=== PATIENT | female | born 1995 | race American Indian/Alaskan Native ===

== ENCOUNTER 2019-02-23 16:18 | Inpatient (IN) | payer MEDICAID ==
[2019-02-23] MEDS ORDERED: BRETHINE SUB-Q PRN (17:43)
[2019-02-23] MEDS ORDERED: BRETHINE IVP PRN (17:43)
[2019-02-23] MEDS ORDERED: MINERAL OIL PO PRN (17:43)
[2019-02-23] MEDS ORDERED: ZOFRAN IV PRN (17:53)
[2019-02-23] MEDS ORDERED: SUBLIMAZE IV PRN (17:53)
[2019-02-23] MEDS ORDERED: XYLOCAINE 2% INFILTRATI ONE ×2 (17:53→18:00)
--- NOTE | 2019-02-23 17:57 | History and Physical Report ---
History of Present Illness Date of examination: 02/23/19 (pt presented to Triage in active labor) History of present illness: EDC Confirmation: 03/06/2019 Gestational Age: 38 2/7 weeks Past History : 3 Term Births: 1 Premature Births: 0 Living Children: 1 Para: 1 Mult. Births: 0 Prev : 0 Aborta: 1 Elect. Ab: 0 Spont. Ab: 1 Ectopics: 0 # 1 Delivery date: 2011 Weeks Gestation: 6 Delivery type: SAB Comments: No D&C # 2 Delivery date: 09/25/2015 Weeks Gestation: 38 labor: no Delivery type: Hours of labor: 12 Anesthesia type: epidural Delivery location: [place], [place] Infant Sex: Female weight: 6-4 Name: Alexa Past Medical History: Bronchitis Past Surgical History: Negative Past Surgical History Family History Summary: Other family member - Has No Family History of Ovarvian Cancer - Entered On: 02/22/2019 Other family member - Has No Family History of Colon Cancer - Entered On: 02/22/2019 Other family member - Has Family History of Hypertension - Entered On: 02/22/2019 Other family member - Has Family History of Diabetes - Entered On: 02/22/2019 Other family member - Has Family History of Coronary Heart Disease - Entered On: 02/22/2019 Other family member - Has Family History Breast Cancer - Entered On: 02/22/2019 Social History: Marital Status: Single Children: 1 Occupation: Risk Factors: Smoked Tobacco Use: Current every day smoker Cigars: Yes -- 5 per week Counseled to quit/cut down: yes Drug use: no HIV high-risk behavior: low risk Alcohol use: no Dietary Counseling: pn yes PAP Smear History: Date of Last PAP Smear: 10/03/2017 Results: normal Past Medical History Surgery (Non-director of housing and energy services): Negative Past Surgical History Abnormal PAP: negative Uterine Anomaly: negative Social Hx: Marital Status: Single Children: 1 Occupation: Infection History Hx of STD: chlamydia HIV Risk Eval: low risk Hepatitis B Risk Eval: low risk Partner hx. of genital herpes: no Genetic History Congenital Heart Defect: Mom: no Dad: no Joselito Disease: Mom: no Dad: no Thalassemia Mom: no Dad: no Neural Tube Defect Mom: no Dad: no Down's Syndrome Mom: no Dad: yes Comments: brother Humble-Sachs Mom: no Dad: no Sickle Cell Disease/Trait Mom: no Dad: no Hemophilia Mom: no Dad: no Muscular Dystrophy Mom: no Dad: no Cystic Fibrosis Mom: no Dad: no Amaury Chorea Mom: no Dad: no Mental Retardation Mom: no Dad: no Fragile X Mom: no Dad: no Other Genetic/Chromosomal Disorder Mom: no Dad: no Child w/other defect Mom: no Dad: no Enviromental Exposures Xray Exposure: no Medication, drug, or alcohol use since LMP: no Chemical/Other Exposure: no Exposure to Cat Liter: no Active Medications (reviewed today): None Current Allergies (reviewed today): * PNC (Critical) * AMOXICILLIN (Critical) Past History - Obstetrical History Expected Date of Delivery: 03/06/19 Actual Gestation: 38 Week(s) 3 Day(s) : 3 Para: 1 Hx # Term Pregnancies: 1 Number of Pregnancies: 0 Spontaneous Abortions: 1 Induced : 0 Number of Living Children: 1 Medications and Allergies Allergies Allergy/AdvReac Type Severity Reaction Status Date / Time amoxicillin Allergy Itching Verified 02/23/19 17:43 Active Meds: Active Medications Ephedrine Sulfate (Ephedrine Sulfate) 10 mg IV Q2M PRN PRN Reason: Hypotension Oxytocin/Sodium Chloride (Pitocin/Ns 20 Unit/1000ml Drip) 20 units in 1,000 mls @ 125 mls/hr IV DIRECT AVERY Oxytocin/Sodium Chloride (Pitocin/Ns 30 Unit/500ml) 30 units in 500 mls @ 1 mls/hr IV TITR AVEYR; Protocol Lactated Ringer's (Lactated Ringers) 1,000 mls @ 125 mls/hr IV DIRECT AVERY Lidocaine (Xylocaine 2%) 20 ml INFILTRATI ONCE ONE Stop: 02/23/19 18:01 Mineral Oil (Mineral Oil) 30 ml PO QHS PRN PRN Reason: Constipation Terbutaline Sulfate (Brethine) 0.25 mg SUB-Q ONCE PRN PRN Reason: Hyperstimulation/Hypertonicity Terbutaline Sulfate (Brethine) 0.25 mg IVP ONCE PRN PRN Reason: Hyperstimulation/Hypertonicity - Vital Signs Vital signs: Vital Signs Pulse BP 100 H 121/71 02/23/19 16:35 02/23/19 16:35 Temp Pulse Resp BP Pulse Ox 98.1 F 100 H 16 121/71 02/23/19 17:42 02/23/19 16:35 02/23/19 17:42 02/23/19 16:35 - Physical Exam Breasts: Positive: deferred Cardiovascular: Regular rate, Normal S1, Normal S2 Lungs: Positive: Normal air movement Abdomen: Positive: normal appearance, soft, normal bowel sounds. Negative: distention, tenderness Genitourinary (Female): Positive: normal perenium Vulva: both: normal Vagina: Positive: normal moisture. Negative: discharge Cervix: Negative: lesion, discharge Uterus: Positive: normal size, normal contour Adnexa: both: normal Anus/Rectum: Positive: normal perianal skin, heme negative. Negative: rectal mass, hemorrhoids Extremities: Positive: normal Deep Tendon Reflex Grade: Normal +2 - Obstetrical FHR: category 1 Uterine Contraction Monitor Mode: External Cervical Dilatation: 7 (chg from arrival 5cm by Triage nurse) Cervical Effacement Percentage: 100 station: -1 Uterine Contraction Pattern: Regular Uterine Tone Measurement Phase: Resting Uterine Contraction Intensity: Moderate Results All other labs normal. Current OB Labs Blood Type: O (07/06/2018) Rh Type: positive (07/06/2018) Rh Antibody Screen: negative (07/06/2018) Hgb: 13.6 (07/06/2018) Hct: 41.3 (07/06/2018) Platelets: 234 (07/06/2018) Rubella: immune (07/06/2018) RPR: nonreactive (07/06/2018) Hep B Surface Antigen: negative (07/06/2018) HIV: negative (07/06/2018) Pap Smear: normal (10/03/2017) Quad Screen Interpretation: Negative (09/26/2018) 1 Hour GTT: 79 (12/07/2018) Optional Labs Sickle Cell: negative (07/06/2018) Assessment and Plan 23yo @ 38 weeks active labor GBS unknown Saw pt for the first time in our office 02/22/19. All orders in EMR anticipate delivery
[2019-02-23] MEDS ORDERED: PITOCin/NS 20 UNIT/1000ML DRIP 20 UNITS/1,000 ML BAG IV SCH (18:00)
[2019-02-23] MEDS ORDERED: LACTATED RINGERS 1,000 ML IV SCH ×2 (18:00)
[2019-02-23] MEDS ORDERED: PITOCin/NS 30 UNIT/500ML 30 UNITS/500 ML BAG IV SCH (18:00)
[2019-02-23] MEDS ORDERED: CLEOCIN 900 MG/50 mL 900 MG/50 ML BAG IV SCH (18:00)
[2019-02-23 18:16] LABS: Hematocrit 36.9 % (30.3-42.9); Hemoglobin 12.8 gm/dl (10.1-14.3); Mean Corpuscular HGB Conc 35 % (30-34); Mean Corpuscular Volume 92 fl (79-97); Platelet Count 183 K/mm3 (140-440); Red Blood Count 4.03 M/mm3 (3.65-5.03); Red Cell Distribution Width 14.7 % (13.2-15.2)
[2019-02-23] MEDS ORDERED: STADOL IV PRN (18:55)
[2019-02-23] MEDS ORDERED: STADOL ONE (18:58)
[2019-02-23] MEDS ORDERED: TUCKS PAD TP PRN (18:59)
[2019-02-23] MEDS ORDERED: MILK OF MAGNESIA PO PRN (18:59)
[2019-02-23] MEDS ORDERED: PHENERGAN PO PRN (18:59)
[2019-02-23] MEDS ORDERED: BENADRYL PO PRN (18:59)
[2019-02-23] MEDS ORDERED: LANSINOH TP PRN (18:59)
[2019-02-23] MEDS ORDERED: DULCOLAX PR PRN (18:59)
[2019-02-23] MEDS ORDERED: SODIUM CHLORIDE FLUSH SYRINGE 10 ML IV NR (19:00)
--- NOTE | 2019-02-23 19:08 | Procedure Note ---
OB Delivery Note - Delivery Date of Delivery: 02/23/19 Scrum Master: ANDREW HAMLIN Estimated blood loss: 300cc - Vaginal Delivery presentation: vertex Delivery position: OA Intrapartum events: none Delivery induction: none Delivery augmentation: rupture of membranes Delivery monitor: external FHT, external uterine Route of delivery: Delivery placenta: spontaneous Delivery cord: nuchal cord, 3 umbilical vessels Episiotomy: none Delivery laceration: none Anesthesia: none Delivery comments: live born male over intact perineum CAN x1 delivered through Cord blood obtained Placenta and membrane del complete and intact, 3 vessel cord. Pit IVFs 8/9, EBL 300, wgt 6-15. Mom and baby remain LDR stable - A at 1 minute: 8 at 5 minutes: 9 Gender: Male (wgt 6-15)
[2019-02-23] MEDS: COLACE PO SCH (22:04)
[2019-02-23] MEDS: IBUPROFEN PO SCH (22:07)
[2019-02-24] MEDS: TYLENOL PO PRN ×3 (02:39→22:28)
[2019-02-24 05:55] LABS: Amphetamine Screen,Urine PRESUMPTIVE NEGATIVE; Benzodiazepines Screen,Urine PRESUMPTIVE NEGATIVE; Cannabinoid Screen,Urine PRESUMPTIVE NEGATIVE; Cocaine Screen,Urine PRESUMPTIVE NEGATIVE; Methadone Screen,Urine PRESUMPTIVE NEGATIVE; Opiate Screen,Urine PRESUMPTIVE NEGATIVE
[2019-02-24] MEDS ORDERED: BOOSTRIX IM ONE (06:00)
[2019-02-24] MEDS ORDERED: M-M-R II VACCINE SUB-Q ONE (06:00)
[2019-02-24] MEDS: IBUPROFEN PO SCH ×3 (06:27→17:47)
[2019-02-24 07:43] LABS: Hemoglobin 10.8 gm/dl (10.1-14.3)
[2019-02-24 07:48] LABS: Hematocrit 31.4 % (30.3-42.9)
[2019-02-24] MEDS: COLACE PO SCH ×2 (10:22→22:26)
--- NOTE | 2019-02-24 11:07 | Progress Note ---
Assessment and Plan - Patient Problems (1) Spontaneous vaginal delivery Onset Date: ~02/23/19 Current Visit: Yes Status: Acute Plan to address problem: pt resting No c/o voiced VSS FF below umb Lochia small perineum intact H&H 05/30 drop r/t blood loss from delivery. Pt w/o any s/sx of anemia. Doing well s/p vag delivery P: continue pathway Adv as tolerated. Plan d/c for tomorrow. Subjective - Subjective Date of service: 02/24/19 (No c/o voiced) Principal diagnosis: Day #1 s/p vaginal delivery Interval history: EDC Confirmation: 03/06/2019 Gestational Age: 38 2/7 weeks Past History : 3 Term Births: 1 Premature Births: 0 Living Children: 1 Para: 1 Mult. Births: 0 Prev : 0 Aborta: 1 Elect. Ab: 0 Spont. Ab: 1 Ectopics: 0 # 1 Delivery date: 2011 Weeks Gestation: 6 Delivery type: SAB Comments: No D&C # 2 Delivery date: 09/25/2015 Weeks Gestation: 38 labor: no Delivery type: Hours of labor: 12 Anesthesia type: epidural Delivery location: [place], [place] Infant Sex: Female weight: 6-4 Name: Alexa Past Medical History: Bronchitis Past Surgical History: Negative Past Surgical History Family History Summary: Other family member - Has No Family History of Ovarvian Cancer - Entered On: 02/22/2019 Other family member - Has No Family History of Colon Cancer - Entered On: 02/22/2019 Other family member - Has Family History of Hypertension - Entered On: 02/22/2019 Other family member - Has Family History of Diabetes - Entered On: 02/22/2019 Other family member - Has Family History of Coronary Heart Disease - Entered On: 02/22/2019 Other family member - Has Family History Breast Cancer - Entered On: 02/22/2019 Social History: Marital Status: Single Children: 1 Occupation: Risk Factors: Smoked Tobacco Use: Current every day smoker Cigars: Yes -- 5 per week Counseled to quit/cut down: yes Drug use: no HIV high-risk behavior: low risk Alcohol use: no Dietary Counseling: pn yes PAP Smear History: Date of Last PAP Smear: 10/03/2017 Results: normal Past Medical History Surgery (Non-nurse obgyn): Negative Past Surgical History Abnormal PAP: negative Uterine Anomaly: negative Social Hx: Marital Status: Single Children: 1 Occupation: Infection History Hx of STD: chlamydia HIV Risk Eval: low risk Hepatitis B Risk Eval: low risk Partner hx. of genital herpes: no Genetic History Congenital Heart Defect: Mom: no Dad: no Joselito Disease: Mom: no Dad: no Thalassemia Mom: no Dad: no Neural Tube Defect Mom: no Dad: no Down's Syndrome Mom: no Dad: yes Comments: brother Humble-Sachs Mom: no Dad: no Sickle Cell Disease/Trait Mom: no Dad: no Hemophilia Mom: no Dad: no Muscular Dystrophy Mom: no Dad: no Cystic Fibrosis Mom: no Dad: no [place] Chorea Mom: no Dad: no Mental Retardation Mom: no Dad: no Fragile X Mom: no Dad: no Other Genetic/Chromosomal Disorder Mom: no Dad: no Child w/other defect Mom: no Dad: no Enviromental Exposures Xray Exposure: no Medication, drug, or alcohol use since LMP: no Chemical/Other Exposure: no Exposure to Cat Liter: no Active Medications (reviewed today): None Current Allergies (reviewed today): * PNC (Critical) * AMOXICILLIN (Critical) Patient reports: appetite normal, voiding normally, ambulating normally : doing well Objective - Vital Signs Latest vital signs: Vital Signs Temp Pulse Resp BP Pulse Ox 02/24/19 07:45 98.9 F 85 18 106/55 99 02/24/19 04:21 98.3 F 80 20 125/72 96 02/23/19 21:31 97.8 F 75 20 105/63 98 02/23/19 20:08 77 93/51 02/23/19 19:53 82 97/52 02/23/19 19:38 81 103/57 02/23/19 19:23 93 H 109/54 02/23/19 18:18 75 145/84 02/23/19 17:42 98.1 F 16 02/23/19 16:35 100 H 121/71 Intake and Output 02/23/19 02/24/19 02/24/19 22:59 06:59 14:59 Intake Total 240 480 480 Output Total 1300 Balance 240 -820 480 Intake: Oral 240 480 120 Intake, Free Water 360 Output: Urine 1300 Void 1300 Other: Total, Intake Amount 240 240 120 Total, Output Amount 400 # Voids Void 1 Weight 357 lb 2.382 oz Estimated Blood Loss 300 - Exam Breasts: Present: normal Cardiovascular: Present: Regular rate Lungs: Present: Normal air movement Abdomen: Present: normal appearance, soft, normal bowel sounds Vulva: both: normal Uterus: Present: normal, fundal height below umbilicus Extremities: Present: normal Deep Tendon Reflex Grade: Normal +2 Incision: Present: normal, dry, intact - Labs Labs: Abnormal lab results 02/23/19 Range/Units 18:00 MCHC 35 H (30-34) %
[2019-02-25] MEDS: IBUPROFEN PO SCH ×3 (03:48→17:41)
[2019-02-25] MEDS: COLACE PO SCH (09:44)
[2019-02-25] MEDS: TYLENOL PO PRN (09:47)
--- NOTE | 2019-02-25 13:42 | Discharge Summary ---
Providers - Providers Date of Admission: 02/23/19 19:28 Date of discharge: 02/25/19 Attending physician: TOVA FELICIANO Primary care physician: TOVA FELICIANO Hospitalization Reason for admission: labor Condition: Good Pertinent studies: post delivery H&H 10.8/31.4, asymptomatic Procedures: Hospital course: uneventful delivery and course Disposition: DC-01 TO HOME OR SELFCARE Core Measure Documentation - Palliative Care Palliative Care/ Comfort Measures: Not Applicable - Core Measures Any of the following diagnoses?: none Exam - Constitutional Vitals: Temp Pulse Resp BP Pulse Ox 98.2 F 68 20 102/62 100 02/25/19 07:45 02/25/19 07:45 02/25/19 07:45 02/25/19 07:45 02/25/19 01:00 General appearance: Present: no acute distress, well-nourished - EENT Eyes: Present: PERRL ENT: hearing intact, clear oral mucosa - Neck Neck: Present: supple, normal ROM - Respiratory Respiratory effort: normal Respiratory: bilateral: CTA - Cardiovascular Heart Sounds: Present: S1 & S2. Absent: rub, click - Extremities Extremities: pulses symmetrical, No edema Peripheral Pulses: within normal limits - Abdominal General gastrointestinal: Present: soft, non-tender, non-distended, normal bowel sounds Female genitourinary: Present: normal - Integumentary Integumentary: Present: clear, warm, dry - Musculoskeletal Musculoskeletal: gait normal, strength equal bilaterally - Psychiatric Psychiatric: appropriate mood/affect, intact judgment & insight - Neurologic Neurologic: CNII-XII intact, moves all extremities - Additional findings Additional findings: Patient reports feeling well, denies any complaints. Fundus firm, ML, U/2.Vaginal bleeding is small, patient denies any heavy bleeding or clots. She reports pain is well controlled with medications. Pt reports bottle feeding, but interested in pumping. Will arrange for RN to set up with pump. She denies any breast complaints. DWP post delivery H&H, she denies any dizziness or feeling faint with ambulation or position changes. VSSAF. Plan Activity: no restrictions Diet: regular Follow up with: TOVA FELICIANO MD [Primary Care Provider] - 03/25/19 (Congratulations! Please call [phone] to schedule your appointment in 4 weeks. Schedule your son's circumcision appointment in 1 week. Bring EMLA cream prescription with you to his appointment and await further instructions for use. Call with any questions or concerns. ) Prescriptions: Lidocain2.5%/Prilocai2.5% [Emla] 5 gm TP PRN #1 tube Ibuprofen [Motrin 800 MG tab] 800 mg PO TID PRN #30 tablet PRN Reason: Pain
[2019-02-25 20:09] VITALS: BP 120/82
== END 2019-02-25 20:08 | disposition home or self-care (01) | DRG 775 ==
LOC: TRG 16:18 → LD 17:28 → TRG 19:26 → LD 19:28 → OB 21:10
PROVIDERS: ADMIT Obstetrics & Gynecology; ATTEND Obstetrics & Gynecology
PROC: 10E0XZZ Delivery of Products of Conception, External Approach (ICD-10-PCS; principal; 2019-02-23)
PROC: 3E0234Z Introduction of Serum, Toxoid and Vaccine into Muscle, Percutaneous Approach (ICD-10-PCS; 2019-02-24)
DX: O69.81X0 Labor and delivery complicated by cord around neck, without compression, not applicable or unspecified (principal); Z3A.38 38 weeks gestation of pregnancy; Z37.0 Single live birth; Z82.49 Family history of ischemic heart disease and other diseases of the circulatory system; Z83.3 Family history of diabetes mellitus; Z80.3 Family history of malignant neoplasm of breast; Z88.0 Allergy status to penicillin; Z88.1 Allergy status to other antibiotic agents; Z23 Encounter for immunization
CPT/HCPCS: 36415; 80307; 85014; 85018; 85027; 86592; 86850; 86900; 86901; 90471; 90715; G0378; J0595; J2590; J3010; J7120